=== PATIENT | female | born 1995 | race Caucasian/White ===

== ENCOUNTER → 2018-07-24 | Day surgery (SDC) | payer OTHER ==
[~2018-07-24] MED LIST: ACETAMINOPHEN 1000 MG/100 ML 100 ML IV ONE; ACETAMINOPHEN 1000 MG/100 ML IV ONE; DEXAMETHASONE SOD PHOS INJ 4 MG/ML VIAL ONE; FENTANYL CITRATE/PF 100MCG/2 ML INJ ONE; GLYCOPYRROLATE INJ 1MG/ 5 ML SYR ONE; LIDOCAINE 1% W/EPINEPHRINE 20 ML VIAL ONE; LIDOCAINE HCL (LTA) 4 ML SOLN ONE; LIDOCAINE HCL 2% LOCAL INJ 5 ML SDV VIAL INJ ONE; MIDAZOLAM HCL 2 MG/2 ML VIAL ONE; MULTIVITAMINS1 EAC7 PO; MUPIROCIN 2% OINT 22 GM TUBE ONE; NEOSTIGMINE 5 MG/5ML SYR ONE; ONDANSETRON HCL INJ 2 MG/ML VIAL ONE; OXYMETAZOLINE HCL 0.05% NAS 1 SPRAY BTL ONE; PROPOFOL IV EMULSION 10 MG/ML 20 ML VIAL ONE; ROCURONIUM BROMIDE 10 MG/ML 5ML VIAL ONE; SODIUM CHLORIDE/ALOE VERA 14.1GM NASAL GEL ONE
--- NOTE | 2018-07-24 13:19 | Operative Report ---
DATE OF PROCEDURE: July 24, 2018 PREOPERATIVE DIAGNOSES 1. Deviated septum to the left. 2. Turbinate hypertrophy. 3. Nasal obstruction. POSTOPERATIVE DIAGNOSES 1. Deviated septum to the left. 2. Turbinate hypertrophy. 3. Nasal obstruction. PROCEDURES 1. Septoplasty. 2. Bilateral inferior turbinate reductions with submucous resection with microdebrider. SIGNIFICANT FINDINGS: Deviated septum to the left and bilateral turbinate hypertrophy. ELECTRONIC TECHNOLOGIST: None. ANESTHESIA: General endotracheal tube anesthesia. ESTIMATED BLOOD LOSS: 5 mL. COMPLICATIONS: None. INDICATIONS: The patient is a 22-year-old female with 1 to 2 year history of nasal obstruction, worse on the left. She denies epistaxis, rhinorrhea, sinus pain or fever. She does not use [id number] nasal decongestant sprays. There has been no previous nasal or sinus surgery. She is a nonsmoker. She has been refractory to medical treatment. Allergy testing was negative. On examination, she has a deviated septum to the left with turbinate hypertrophy, worse on the right. She is scheduled for septoplasty and turbinate reductionS for the treatment of deviated septum and turbinate hypertrophy causing nasal obstruction. Risks and complications of the procedures were thoroughly discussed with the patient, and they include infection; bleeding; scarring; failure to improve; persistent nasal obstruction; need for additional operations; poor external cosmetic appearance of the nose; septal perforation resulting in crusting, irritation and bleeding; inability to smell or taste; chronic pain; leakage of cerebrospinal fluid; need for blood transfusions; damage to surrounding nerves, blood vessels and muscles. She fully understands and gives consent. PROCEDURE: Patient was taken to the operating room and placed supine on the operating table where general anesthesia was achieved through orotracheal intubation. Eyes were taped. Injection with 6 mL of 1% lidocaine with 1:100,000 epinephrine was injected into the submucoperichondrial planes bilaterally. The nasal cavities were packed with cottonoid pledgets soaked with Afrin. The face was prepped and draped in the usual sterile fashion. The cottonoid pledgets were then removed. A hemitransfixion incision was made on the left-hand side with a #15 blade. Overlying mucoperichondrium was elevated off of both sides. The quadrangular cartilage was disarticulated from the deviated bony septum posteriorly. The deviated bony septum with a significant septal spur to the left was then taken down with Jason rongeurs. The quadrangular cartilage was left intact, though a small, relaxing incision was made in a horizontal fashion on the posterior aspect of the quadrangular cartilage to address the buckled nature of the quadrangular cartilage. In this way, the quadrangular cartilage became straight. Following this, injection with 1% lidocaine with 1:100,000 epinephrine was injected into the anterior portions of the inferior turbinates bilaterally followed by stab incisions with a #15 blade. Tunneling was then performed with the Neelima elevator in the submucous aspect of the turbinates. The submucous tissue was then debrided with a microdebrider trying to avoid trauma to the external mucosa. This was done bilaterally. The inferior turbinates were then lateralized with the [place] elevator. The hemitransfixion incision on the left-hand side was repaired with interrupted 4-0 Monocryl followed by the placement of bilateral silastic septal splints coated with antibiotic ointment. These were placed bilaterally and were held in place with [id number] 3-0 silk. Steffen Merocel packs also coated with antibiotic ointment were then inserted into the nose bilaterally with the strings tied loosely around the columella. Patient was awakened in the operating room, extubated and taken to the recovery room in good condition. Job#: [id number] CM PORTILLO
[2018-07-24 13:20] VITALS: BP 115/82
== END | disposition home or self-care (01) ==
LOC: OR 08:27
PROVIDERS: ATTEND Otolaryngology
DX: J34.2 Deviated nasal septum (principal); J34.3 Hypertrophy of nasal turbinates; J34.89 Other specified disorders of nose and nasal sinuses; E03.9 Hypothyroidism, unspecified
CPT/HCPCS: 30140; 30520; 81025; J0131; J1100; J2001; J2250; J2405; J2704; J3490